=== PATIENT | female | born 1995 | race Hispanic/Latino ===

== ENCOUNTER 2021-04-04 07:47 | Inpatient (IN) | payer OTHER ==
[2021-04-04] MEDS ORDERED: CARBOPROST TROME 250 MCG/ML IM PRN (07:51)
[2021-04-04] MEDS ORDERED: Ringers Lactate 1,000 ML IV PRN (07:51)
[2021-04-04] MEDS ORDERED: METHYLERGONOVINE 0.2MG/ML AMP IM PRN (07:51)
[2021-04-04] MEDS ORDERED: Ringers Lactate 1,000 ML IV SCH (08:00)
[2021-04-04] MEDS ORDERED: CEFAZOLIN 2 GM in NA CHLORIDE 0.9% 100 ML IVP SCH (08:00)
[2021-04-04] MEDS ORDERED: OXYTOCIN/LR 20 UNIT/1,000 ML BAG IV SCH ×2 (08:00→20:00)
[2021-04-04 08:35] LABS: Absolute Lymphocytes (CBC) 1.7 K/uL (0.7-4.9); Basophils % 0.5 % (0-1.3); Hematocrit 33.2 % (36.0-45.0); Lymphocytes % 14.3 % (15.3-44.8); MPV 8.4 fL (7.6-11.3); RBC Red Blood Cell Count 3.97 M/uL (3.86-4.86)
[2021-04-04 08:40] LABS: Protime INR 0.95
[2021-04-04 08:47] VITALS: BMI 47.7
[2021-04-04] MEDS ORDERED: LIDOCAINE 1% MPF 5 ML VIAL ONE (09:24)
[2021-04-04] MEDS ORDERED: NA CIT/CITRIC AC 30 ML ORAL UDC PO ONE (09:30)
[2021-04-04] MEDS ORDERED: FAMOTIDINE 20 MG TAB PO ONE (09:31)
--- NOTE | 2021-04-04 09:44 | PREOPHP ---
Date of Admission: 04/04/2021 History Of Present Illness: A 26-year-old 2, para 1, scheduled for next week on , which would be 39 weeks. Today, came in with ruptured membranes since about 3:30 this morning making her about 38 weeks and 2 to 3 days. She is having mild contractions. Baby is vertex. She h as not even or drank anything since midnight. We are getting things ready for the at this p oint. Family History: Grandparents with hypertension, also 1 or 2 grandparents with heart attacks. No oth er significant family history. Past Surgical History: Had a in 2016. Otherwise no other surgeries. Allergies: NO ALLERGIES. Medications: No medicines prior to admission other than vitamins and iron. Social History: Does not smoke. Physical Examination: HEENT: Clear. Pupils equal, round, reactive to light and accommodation. Conjunctivae well perfused . No oral, lingual, or buccal lesions. Chest and Lungs: Clear. Heart: Without murmurs, thrills, heaves, or rubs. Breasts: without masses on previous visits. Abdomen: Term size. Extremities: Clear without edema, cyanosis, or clubbing. Pelvic: The patient is about 2 to 3 cm, but vertex is still -2 station. Fluid is clear. We will prepare for at this point. GRISEL/CAROL Voice ID: [id number]
[2021-04-04] MEDS: METOCLOPRAMIDE 10 MG/2mL INJ IV SCH ×2 (09:55→09:56)
[2021-04-04] MEDS ORDERED: OXYTOCIN 10 UNIT/ML ML IV ONE (11:08)
[2021-04-04] MEDS ORDERED: ACETAMINOPHEN 500 MG TAB PO PRN ×2 (11:19)
[2021-04-04] MEDS ORDERED: BISACODYL 10 MG RECTAL SUPP PR PRN (11:19)
[2021-04-04] MEDS ORDERED: Oxycodone HCl/Acetaminophen 1 TAB TAB PO PRN ×2 (11:19)
[2021-04-04] MEDS ORDERED: ONDANSETRON 4 MG/2 ML VIAL IV PRN (11:19)
[2021-04-04] MEDS ORDERED: KETOROLAC 30 MG/ML INJ IV PRN (11:19)
[2021-04-04] MEDS ORDERED: DIPHENHYDRAMINE 50 MG/ML VIAL IV PRN (11:44)
[2021-04-04] MEDS ORDERED: PROMETHAZINE INJ 25 MG/ML AMP IV PRN (11:46)
[2021-04-04] MEDS ORDERED: ONDANSETRON 4 MG (ODT) TAB PO PRN (11:57)
[2021-04-04] MEDS ORDERED: D5LR 1,000 ML with OXYTOCIN 20 UNIT IV SCH ×2 (12:00)
[2021-04-04] MEDS: IBUPROFEN 200 MG TAB PO PRN (14:55)
[2021-04-04] MEDS ORDERED: CEFAZOLIN 1 GM in NA CHLORIDE 0.9% 50 ML IVPB ONE (17:00)
[2021-04-04] MEDS ORDERED: CEFAZOLIN 1 GM in NA CHLORIDE 0.9% 100 ML IVPB ONE (18:00)
[2021-04-05] MEDS ORDERED: OXYTOCIN 10 UNIT/ML ML IV ONE ×2 (03:07→03:10)
--- NOTE | 2021-04-05 07:45 | PN ---
Postoperatively, doing quite well, has ambulated slightly. Output is good. Vital signs are normal. H and H with minimal change. She has no complaints or problems this morning. She has only taken To radol 1 time. We will discontinue the Tabor in the next couple of hours, IV after she has ambulated. Start p.o. intake. Offered laxative to make sure she does not have any problems with excessive gas . She has had her Tdap immunization. Flu shot, she can come to the office and get next week or of c ourse go to any pharmacy if she wishes that. We went over full dismissal instructions to report any temperature elevation when she is at home of 100 degrees or greater, severe pain, heavy bleeding, or any other type of abnormalities. When she goes home, we will either give her Motrin 600 mg or tramad ol. She will decide when she leaves. She knows she is eligible for dismissal late this afternoon, b ut will probably stay until tomorrow morning. No post spinal block problems. Full postoperative edmundo RECINOS/CAROL Voice ID: [id number] Report ID: [id number]
[2021-04-05] MEDS: IBUPROFEN 200 MG TAB PO PRN ×2 (08:39→16:24)
[2021-04-05] MEDS ORDERED: MAGNESIUM HYDROXIDE 8% 30 ML PO PRN (11:19)
[2021-04-05] MEDS ORDERED: DIPHENHYDRAMINE 25 MG TAB/CAP PO PRN (11:19)
[2021-04-05 20:53] LABS: RPR (Rapid Plasma Reagin) NON-REACT (NON-REACT)
[2021-04-06] MEDS: IBUPROFEN 200 MG TAB PO PRN (04:53)
--- NOTE | 2021-04-06 08:53 | DS ---
Hospital Course: 26-year-old female 2, para 1, 38 weeks and 2 days came in early labor. Rup ture of membranes. Had a repeat section performed. Spinal block anesthesia. Delivery of a 7 pounds 9 ounces male infant, Apgars 9 and 10, 700 cc or less blood loss. Ancef for prophylaxis. Rh positive, immune to rubella, negative strep, negative COVID. afebrile, ambulating, andreai karan. Lochia is normal. She requests no analgesics on dismissal. Says that Motrin works fine. She has had her Tdap immunization during the . No post spinal block problems. Final Diagnoses: Term intrauterine 38 weeks 2 days, repeat section, spinal block anesthesia. GRISEL/CAROL Voice ID: [id number] Report ID: [id number]
[2021-04-06 10:17] VITALS: BP 122/68; TEMP 98.9
--- NOTE | 2021-04-08 09:53 | OP ---
Surgeon: Gagandeep Stein MD Indication: 26-year-old, 2, para 1, 38 weeks 2 days, scheduled for early next week . Experienced spontaneous rupture of membranes at 4 o'clock this morning. Clear fluid. Came to Lab or and Delivery several hours later. Was in early labor, but not in any pain. Full preoperative cou nseling concerning procedure and possible complications including infection; blood loss; anesthetic c omplications; injury to bladder, bowel, ureter; postoperative complications; clots in legs; and pneum onia. The patient knows fully well this does not constitute all the possible problems that could occ ur during or following surgery. Full counseling was performed. Procedure In Detail: The patient was taken to surgery. 2 g of Ancef had been given prophylactically . Spinal block was administered. Prepping and draping, time-out was performed. A low-transverse ut erine incision was created. The fascia was incised. The incision carried to the fascia and incision carried bilaterally. Anterior and posterior fascial planes were developed with both blunt and sharp dissection. Underlying rectus muscle was . Peritoneal defect was seen and entered. Minim al scar tissue noted, but the lower uterine segment was fairly thin. Lower uterine incision transver se was made. A 7-pound 9-ounce male infant was delivered without difficulties. Apgars [address] blood specimen obtained. Placenta removed manually. Uterus cleared of clot and blood and exterio rized. Cervical os opened with ring clamps. She is already 3 cm before the surgery. Uterus closed with a running locked stitch of 1 chromic. Estimated blood loss 700 mL. Gutters clear of clot and b lood. Cul-de-sac inspected. No further bleeding. Uterus replaced in the peritoneal cavity and agai n inspection of suture line showed no further bleeding. The rectus muscles were brought together wit h 2 interrupted sutures of 0 Vicryl. The fascia was closed with 1 PDS running from either angle to t he midline. Subcutaneous tissue closed with 2-0 plain. [place] were used for the skin. The patient tolerated all procedures well, transferred back to her room in good. Final Diagnoses: Term intrauterine at 38 weeks and 2 days, scheduled for section, came in with ruptured membranes in early labor, repeat section, spinal block anesthesia. NBC/MODL Voice ID: [id number] Report ID: [id number]
== END 2021-04-06 10:10 | disposition home or self-care (01) | DRG 788 ==
LOC: 2ND-WC 07:47
PROVIDERS: ADMIT Specialist; ATTEND Specialist
PROC: 10D00Z1 Extraction of Products of Conception, Low, Open Approach (ICD-10-PCS; principal; 2021-04-04 10:35)
DX: O34.211 Maternal care for low transverse scar from previous cesarean delivery (principal); Z3A.38 38 weeks gestation of pregnancy; Z37.0 Single live birth; Z20.822 Contact with and (suspected) exposure to COVID-19
CPT/HCPCS: 36415; 85014; 85025; 85610; 85730; 86592; 86850; 86900; 86901; 87340; 88307; J0690; J1200; J2210; J2590; J2765; J7120; U0003

== ENCOUNTER 2021-04-18 19:32 | Emergency (ER) | payer OTHER ==
--- NOTE | 2021-04-18 21:18 | RAD REPORT ---
EXAM DESCRIPTION: RAD - Chest Single View - 04/18/2021 9:08 pm CLINICAL HISTORY: CHEST PAIN Chest pain. COMPARISON: No comparisons FINDINGS: Portable technique limits examination quality. The lungs are grossly clear. The heart is normal in size. No displaced fractures. IMPRESSION: No acute intrathoracic process suspected.
--- NOTE | 2021-04-18 21:28 | RAD REPORT ---
EXAM DESCRIPTION: US - Abdomen Exam Limited - 04/18/2021 9:19 pm CLINICAL HISTORY: vomiting, ;Abd pain COMPARISON: No comparisons FINDINGS: The gallbladder demonstrates prominent shadowing gallstone. No pericholecystic fluid or ga llbladder wall thickening. The common bile duct is normal measuring 2 mm. The liver demonstrates no findings of intrahepatic biliary dilatation. IMPRESSION: Cholelithiasis.
[2021-04-18 21:59] LABS: Absolute Lymphocytes (CBC) 1.3 K/uL (0.7-4.9); Basophils % 0.2 % (0-1.3); Hematocrit 37.6 % (36.0-45.0); Lymphocytes % 9.8 % (15.3-44.8); MPV 8.5 fL (7.6-11.3); RBC Red Blood Cell Count 4.54 M/uL (3.86-4.86)
[2021-04-18 22:43] LABS: ALT/SGPT 32 U/L (12-78); AST/SGOT 46 U/L (15-37); Albumin 3.2 g/dL (3.4-5.0); Alkaline Phosphatase 157 U/L (45-117); BUN Blood Urea Nitrogen 10 mg/dL (7-18); Bicarbonate 25 mmol/L (21-32); Bilirubin Direct 0.2 mg/dL (0-0.2); Bilirubin Total 0.5 mg/dL (0.2-1.0); Glucose Level 105 mg/dL (74-106); Lipase 79 U/L (73-393); Potassium 3.4 mmol/L (3.5-5.1); Protein, Total 7.7 g/dL (6.4-8.2); Sodium Level 141 mmol/L (136-145)
--- NOTE | 2021-04-18 23:12 | EDPHYS ---
Physician Documentation [facility] Name: Sari Alcazar Age: 26 yrs Sex: Female : 1995 Arrival Date: 04/18/2021 Time: 19:36 Bed 20 Private MD: ED Physician Maicol Telles HPI: 04/18 20:46 This 26 yrs old Female presents to ER via Ambulatory with complaints of Chest rn Pain. 20:46 The patient or guardian reports chest pain that is located primarily in the substernal rn area, epigastric area. The pain radiates to back. Associated signs and symptoms: Pertinent positives: nausea, vomiting, Pertinent negatives: cough, diaphoresis, palpitations, syncope. The chest pain is described as squeezing. Duration: The patient or guardian reports multiple episodes, that are intermittent, the episodes last approximately 15 minute(s). Modifying factors: The symptoms are alleviated by nothing. the symptoms are aggravated by eating. Severity of pain: At its worst the pain was moderate in the emergency department the pain has improved. The patient has not experienced similar symptoms in the past. The patient has not recently seen a physician. Patient reports substernal and epigastric chest pain that radiates to the back, started approximately an hour or 2 after eating Sonic with fried food. Reports single episode of vomiting that ended up making the pain feel better. Currently 2 weeks , , uncomplicated. No known previous gallbladder problems. No family history of early cardiac problems. Patient without any past medical history or previous episodes of chest pain. Denies any diarrhea. No fever. Pain is episodic and lasts 10 to 20 minutes at a time and goes away on its own. Currently denies any pain or nausea. Denies any lightheadedness or syncope.. DOCTOR OF PHARMACY: 21:15 LMP N/A - Recent wg Historical: - Allergies: 19:55 No Known Allergies; sj1 - PMHx: 19:55 None; sj1 - Immunization history:: Adult Immunizations up to date. - Social history:: Smoking status: Patient denies any tobacco usage or history of. Patient/guardian denies using alcohol, street drugs. - Family history:: not pertinent. - Hospitalizations: : Patient was recently seen at. ROS: 20:46 Constitutional: Negative for fever, chills, and weight loss, Eyes: Negative for injury, rn pain, redness, and discharge, Neck: Negative for injury, pain, and swelling, Cardiovascular: Negative for palpitations, and edema, Respiratory: Negative for shortness of breath, cough, wheezing, and pleuritic chest pain, Abdomen/GI: Positive for nausea and vomiting Back: Negative for injury and pain, : Negative for injury, bleeding, discharge, and swelling, MS/Extremity: Negative for injury and deformity, Skin: Negative for injury, rash, and discoloration, Neuro: Negative for headache, weakness, numbness, tingling, and seizure. Exam: 20:46 Constitutional: This is a well developed, well nourished patient who is awake, alert, rn and in no acute distress. Head/Face: Normocephalic, atraumatic. Eyes: Periorbital areas with no swelling, redness, or edema. Cardiovascular: Regular rate and rhythm. No pulse deficits. Respiratory: No increased work of breathing, no retractions or nasal flaring. Abdomen/GI: Soft, non-tender, negative Crespo, no peritoneal signs Skin: Warm, dry with normal turgor. Normal color with no rashes, no lesions, and no evidence of cellulitis. MS/ Extremity: Pulses equal, no cyanosis. Neurovascular intact. Full, normal range of motion. Equal circumference. Neuro: Awake and alert, GCS 15 23:08 ECG was reviewed by the Attending Physician. rn Vital Signs: 19:52 BP 104 / 77 RA Sitting (auto/lg); Pulse 85; Resp 18 S; Temp 98.1(O); Pulse Ox 100% on sj1 R/A; Weight 111.58 kg (R); Height 5 ft. 2 in. (157.48 cm) (R); Pain 4/10; 21:15 BP 123 / 63; Pulse 80; Resp 18; Pulse Ox 99% on R/A; Pain 0/10; wg 23:40 BP 118 / 65; Pulse 76; Resp 18; Pulse Ox 99% on R/A; Pain 0/10; wg 19:52 Body Mass Index 44.99 (111.58 kg, 157.48 cm) sj1 MDM: 20:17 Patient medically screened. rn 23:08 Differential diagnosis: acute pericarditis, anxiety, chest wall pain, cholecystitis, rn Cholelithiasis esophagitis, gastritis, gastroesophageal reflux disease (GERD), pancreatitis, peptic ulcer disease. 23:08 Data reviewed: vital signs, nurses notes, lab test result(s), radiologic studies, rn ultrasound, and as a result, I will discharge patient. 23:09 Counseling: I had a detailed discussion with the patient and/or guardian regarding: the rn historical points, exam findings, and any diagnostic results supporting the discharge/admit diagnosis, lab results, radiology results, the need for outpatient follow up, to return to the emergency department if symptoms worsen or persist or if there are any questions or concerns that arise at home. Special discussion: Based on the patient's history, exam, and Dx evaluation, there is no indication for emergent intervention or inpatient Tx. It is understood by the patient/guardian that if the Sx's persist or worsen they need to return immediately for re-evaluation. Based on the patient's Hx, exam, and Dx evaluation, there is no indication for emergent surgery or inpatient Tx. It is understood by the patient/guardian that if the Sx's persist or worsen they need to return immediately for re-evaluation. I discussed with the patient/guardian in detail that at this point there is no indication for admission to the hospital. It is understood, however, that if the symptoms persist or worsen the patient needs to return immediately for re-evaluation. ED course: Patient pain-free and asymptomatic since arrival. Ultrasound shows cholelithiasis without biliary dilatation and has a normal CBD. No pericholecystic fluid or signs of acute cholecystitis. Stable vitals. Abdominal exam benign. EKG without ischemia. Given recent and only 2 weeks , most common etiology for her pain is cholelithiasis with colic. Will DC home with general surgery follow-up and return precautions.. 04/18 20:37 Order name: Basic Metabolic Panel rn 04/18 20:37 Order name: CBC with Diff rn 04/18 20:37 Order name: Hepatic Function rn 04/18 20:37 Order name: Lipase; Complete Time: 23:08 rn 04/18 20:37 Order name: Basic Metabolic Panel; Complete Time: 23:08 EDMS 04/18 20:37 Order name: CBC with Automated Diff; Complete Time: 22:21 EDID 04/18 20:37 Order name: IV Saline Lock; Complete Time: 22:30 rn 04/18 20:37 Order name: Labs collected and sent; Complete Time: 22:30 rn 04/18 20:37 Order name: US Abdomen Limited; Complete Time: 21:32 rn 04/18 20:37 Order name: EKG; Complete Time: 20:37 rn 04/18 20:37 Order name: EKG - Nurse/Tech; Complete Time: 22:29 rn 04/18 20:37 Order name: XRAY Chest (1 view); Complete Time: 21:32 rn 04/18 20:37 Order name: Liver (Hepatic) Function; Complete Time: 23:08 EDMS EC:08 Rate is 87 beats/min. Rhythm is regular. QRS [place] is Normal. MS interval is normal. QRS rn interval is normal. QT interval is normal. No Q waves. T waves are Normal. No ST changes noted. Clinical impression: NSR w/ Non-specific ST/T Changes. Interpreted by me. Reviewed by me. 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
--- NOTE | 2021-04-18 23:12 | ER ---
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 Coronavirus screen: Vaccine status: Patient reports being unvaccinated. Ebola Screen: Patient negative for fever greater than or equal to 101.5 degrees Fahrenheit, and additional compatible Ebola Virus Disease symptoms Patient denies exposure to infectious person. Patient denies travel to an Ebola-affected area in the 21 days before illness onset. No symptoms or risks identified at this time. Initial Sepsis Screen: Does the patient meet any 2 criteria? No. Patient's initial sepsis screen is negative. Does the patient have a suspected source of infection? No. Patient's initial sepsis screen is negative. Risk Assessment: Do you want to hurt yourself or someone else? Patient reports no desire to harm self or others. Onset of symptoms was April 18, 2021 at 18:30. 19:52 Method Of Arrival: Ambulatory sj 19:52 Acuity: MONISHA 2 sj1 Triage Assessment: 19:55 General: Appears in no apparent distress. Behavior is calm, cooperative, appropriate sj1 for age. Pain: Complains of pain in chest and back. 19:55 Neuro: Reports dizziness. 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 - Social history:: Smoking status: Patient denies any tobacco usage or history of. Patient/guardian denies using alcohol, street drugs. - Family history:: not pertinent. - Hospitalizations: : Patient was recently seen at. Assessment: 21:36 Reassessment: Pt states her pain and symptoms have resolved. Pain: Denies pain. wg Cardiovascular: No deficits noted. Vital Signs: 19:52 BP 104 / 77 RA Sitting (auto/lg); Pulse 85; Resp 18 S; Temp 98.1(O); Pulse Ox 100% on sj1 R/A; Weight 111.58 kg (R); Height 5 ft. 2 in. (157.48 cm) (R); Pain 4/10; 21:15 BP 123 / 63; Pulse 80; Resp 18; Pulse Ox 99% on R/A; Pain 0/10; wg 23:40 BP 118 / 65; Pulse 76; Resp 18; Pulse Ox 99% on R/A; Pain 0/10; wg 19:52 Body Mass Index 44.99 (111.58 kg, 157.48 cm) 1 ED Course: 19:36 Patient arrived in ED. 19:55 Triage completed. sj1 19:55 Arm band placed on left wrist. sj1 20:15 James Darby, RN is Primary Nurse. wg 20:17 Maicol Telles MD is Attending Physician. rn 21:08 XRAY Chest (1 view) In Process Unspecified. EDMS 21:19 US Abdomen Limited In Process Unspecified. EDMS 21:39 Liver (Hepatic) Function Sent. sj1 21:39 CBC with Automated Diff Sent. sj1 21:39 Basic Metabolic Panel Sent. sj1 21:39 Inserted saline lock: 20 gauge in right hand, using aseptic technique. Blood collected. sj1 22:29 Basic Metabolic Panel Sent. wg 22:29 CBC with Diff Sent. wg 22:30 Hepatic Function Sent. wg 22:30 Lipase Sent. wg 22:30 Basic Metabolic Panel Sent. wg 22:30 Liver (Hepatic) Function Sent. wg 23:11 Paulino Magana MD is Referral Physician. rn 23:41 IV discontinued, intact, bleeding controlled, No redness/swelling at site. Pressure wg dressing applied. Administered Medications: No medications were administered Outcome: 23:11 Discharge ordered by . rn 23:41 Discharged to home ambulatory. wg 23:41 Condition: stable 23:41 Discharge instructions given to patient, Instructed on discharge instructions, follow up and referral plans. Demonstrated understanding of instructions, follow-up care. 23:52 Patient left the ED. wg Signatures: Dispatcher [employer] EDMS Maicol Telles MD MD rn Marsh, Wendy James Darby RN wg Johnson, Sade, RN RN [facility]
[2021-04-19 00:30] VITALS: TEMP 98.1
[2021-04-19 00:31] VITALS: O2SAT 99
[2021-04-19 00:32] VITALS: BP 118/65
--- NOTE | 2021-04-20 11:46 | EKG ---
Test Date: 2021-04-18 Test Time: 20:15:08 Well Testing Operator: MEASUREMENT RESULTS: Intervals: Rate: 87 OK: 152 QRSD: 90 QT: 358 QTc: 430 [place]: P: -12 OK: 152 QRS: 58 T: 33 INTERPRETIVE STATEMENTS: Normal sinus rhythm Cannot rule out Anterior infarct, age undetermined Abnormal ECG No previous ECG available for comparison Electronically Signed On 04-20-21 11:44:33 CDT by Harvey Corrales
== END 2021-04-18 23:52 | disposition home or self-care (01) ==
LOC: ER 19:32
DX: K80.80 Other cholelithiasis without obstruction (principal)
CPT/HCPCS: 36415; 71045; 76705; 80048; 80076; 83690; 85025; 93005; 99283

== ENCOUNTER 2021-06-24 08:21 | Day surgery (SDC) | payer OTHER ==
[2021-06-20 14:56] LABS: Absolute Lymphocytes (CBC) 2.3 K/uL (0.7-4.9); Basophils % 0.7 % (0-1.3); Hematocrit 39.6 % (36.0-45.0); Lymphocytes % 27.1 % (15.3-44.8); MPV 8.4 fL (7.6-11.3); RBC Red Blood Cell Count 4.77 M/uL (3.86-4.86)
[2021-06-20 15:23] LABS: ALT/SGPT 24 U/L (12-78); AST/SGOT 17 U/L (15-37); Albumin 3.4 g/dL (3.4-5.0); Alkaline Phosphatase 107 U/L (45-117); Amylase 48 U/L (25-115); BUN Blood Urea Nitrogen 18 mg/dL (7-18); Bicarbonate 25 mmol/L (21-32); Bilirubin Direct 0.1 mg/dL (0-0.2); Bilirubin Total 0.4 mg/dL (0.2-1.0); Glucose Level 91 mg/dL (74-106); Lipase 96 U/L (73-393); Potassium 4.1 mmol/L (3.5-5.1); Protein, Total 7.9 g/dL (6.4-8.2); Sodium Level 141 mmol/L (136-145)
[2021-06-24 08:38] LABS: Specific Gravity >= 1.030 (1.005-1.030)
[2021-06-24] MEDS ORDERED: Ringers Lactate 1,000 ML IV ONE (08:39)
[2021-06-24] MEDS ORDERED: CEFOXITIN/NS 1gm 1 GM/50 ML BAG ONE (08:39)
[2021-06-24] MEDS ORDERED: propofoL 200 MG/20 ML VIAL IV ONE (08:45)
[2021-06-24] MEDS ORDERED: FENTANYL CITR 100 MCG/2 ML ONE (08:45)
[2021-06-24] MEDS ORDERED: MIDAZOLAM HCL 2 MG/2 ML INJ ONE (08:45)
[2021-06-24] MEDS ORDERED: ROCURONIUM 50 MG/5 ML VIAL IV ONE (08:45)
[2021-06-24] MEDS ORDERED: LIDOCAINE 1% MPF 5 ML VIAL ONE (08:45)
[2021-06-24] MEDS ORDERED: BUPIVACAINE 0.5% Inj,MDV 50 mL VIAL ONE (08:46)
[2021-06-24] MEDS ORDERED: CEFOXITIN/NS 1gm 1 GM/50 ML BAG IV ONE (09:15)
[2021-06-24] MEDS ORDERED: dexAMETHasone 10 MG/ML VIAL ONE (09:29)
[2021-06-24] MEDS ORDERED: KETOROLAC 30 MG/ML INJ ONE (09:29)
[2021-06-24] MEDS ORDERED: ONDANSETRON 4 MG/2 ML VIAL ONE ×2 (09:47→10:38)
[2021-06-24] MEDS ORDERED: GLYCOPYRROLATE 0.2 MG/ML SYR ONE (09:47)
[2021-06-24] MEDS ORDERED: NEOSTIGMINE 1 MG/ML -5 ML ONE (09:49)
--- NOTE | 2021-06-24 10:06 | P.BOP ---
Preoperative diagnosis: acute cholecystitis, symptomatic cholelithiasis Postoperative diagnosis: same Primary procedure: Laparoscopic cholecystectomy Estimated blood loss: <10cc Specimen: gb Findings: as above Anesthesia: General Complications: None Transferred to: Recovery Room Condition: Good
[2021-06-24] MEDS: PROMETHAZINE INJ 25 MG/ML AMP ONE ×2 (10:25→10:48)
[2021-06-24] MEDS ORDERED: SUCCINYLCHOLINE 20 MG/ML (10 ML) IV ONE (10:38)
[2021-06-24 11:15] VITALS: BP 124/80; TEMP 98; O2SAT 98
[2021-06-24] MEDS ORDERED: HYDROCODONE/APAP 5/325 MG TAB ONE (11:26)
--- NOTE | 2021-06-24 11:57 | OP ---
Date of Procedure: 06/24/2021 Surgeon: Paulino Magana MD Preoperative Diagnosis: Acute cholecystitis, symptomatic cholelithiasis. Postoperative Diagnosis: Acute cholecystitis, symptomatic cholelithiasis. Procedure: Laparoscopic cholecystectomy. Estimated Blood Loss: Less than 10 mL. Specimen: Gallbladder. Anesthesia: General plus local. Complications: None. Indication: This is a case of a female, who comes to us with above diagnosis. Fully explained the b enefits, alternatives, and risks of laparoscopic possible open cholecystectomy which include, but not limited to infection, bleeding, damage to adjacent structures, anesthesia complication, choledocholi thiasis, bile leak, pancreatitis, [place], and even . She also understands this may not relieve the symptoms. She might need more than one surgical intervention. She understood, signed a consent. Procedure In Detail: The patient was brought to the operating room, placed in supine position. Anes thesia was done without complication. Abdominal area was prepped and draped in a sterile fashion. M arcaine 0.5% was injected for local anesthetic, followed by sharp incision of the skin in the infraum bilical region. Incision was carried down to fascia, which was opened under direct vision. Peritone um was encountered, opened under direct vision. Vicryl #1 placed inside the fascia. Nishant trocar w as carefully introduced, no bleeding was obtained. I placed 3 more trocars, 5 mm each one of them, 1 in the epigastric area and 2 in the right upper quadrant. Using same technique which consisted of l ocal anesthetic, sharp incision of the skin, introduction of the trocars under direct vision. This a llowed me to put a grasper in the fundus of the gallbladder and another grasper in the infundibulum, retracted the gallbladder in the inferolateral fashion, exposing the triangle of Calot obtaining crit ical view. Cystic duct and cystic artery were clearly isolated, free circumferentially and a connect ion between those and the gallbladder were clearly identified. I proceeded to ligate those by using at least 3 clips proximal, 1 clip distal, ligation in middle. Same was done with the cystic artery. No bile leak, no bleeding. The gallbladder was removed from liver using Bovie cauterizer and remove d from abdominal cavity using EndoCatch through the umbilical incision. The area was inspected once again. No bile leak. No bleeding. At that moment, I proceeded to remove the trocars under direct v ision. Deflated pneumoperitoneum, closed the fascia with #1 Vicryl, irrigated subcutaneous tissue, c losed that with 3-0 chromic and skin in a subcuticular fashion with 3-0 chromic and Steri-Strips on t op. Sponge count and instrument counts were correct. The patient tolerated the procedure well. The patient was sent to recovery in stable condition. Diagnosis: Acute cholecystitis, symptomatic cholelithiasis. Procedure: Laparoscopic cholecystectomy. Disposition: Home. Activity: As tolerated, no heavy lifting. Plan: Follow up in my office in 1 week. Call for appointment [phone]. Keep the area dry for 48 ho urs, then may shower. Keep Steri-Strip intact. Medications: Include Tylenol 3 q.4 hours p.r.n. pain, Zofran 4 q.6h p.r.n. nausea, and Bactrim DS p. o. b.i.d. JL/CAROL Voice ID: [id number] Report ID: [id number]
== END 2021-06-24 12:05 | disposition home or self-care (01) ==
LOC: OR 08:21
PROVIDERS: ATTEND Surgery
PROC: 0FT44ZZ Resection of Gallbladder, Percutaneous Endoscopic Approach (ICD-10-PCS; principal; 2021-06-24 09:45)
DX: K80.12 Calculus of gallbladder with acute and chronic cholecystitis without obstruction (principal); F41.9 Anxiety disorder, unspecified; F32.A Depression, unspecified; E66.9 Obesity, unspecified; Z68.39 Body mass index [BMI] 39.0-39.9, adult; Z20.822 Contact with and (suspected) exposure to COVID-19; Z82.49 Family history of ischemic heart disease and other diseases of the circulatory system
CPT/HCPCS: 85025; 80048; 36415; 82150; 81025; 80076; 88304; 83690; 47562; U0003; J2704; J2550; J0330; J2250; J3010; J1100; J2710; J7120; J0694 ×2; J2405 ×2